=== PATIENT | female | born 1995 | race Caucasian/White ===

== ENCOUNTER 2018-05-09 20:07 | Emergency (ER) | payer OTHER, SELFPAY ==
[2018-05-09 20:08] VITALS: BP 135/97; PULSE 93; RESP 16; TEMP 36.8; O2SAT 98; BMI 23.3
--- NOTE | 2018-05-09 22:05 | ED.VISSUMM ---
- ER Visit Summary Date of Service: 05/09/18 Chief Complaint: [place] tooth pain History of Present Illness: The patient is a 22 F with 5-day history of pain where her wisdom teeth are coming through. Patient states she is trying aspirin and Orajel without improvement. She plans on seeing a dentist to have her teeth pulled. Physical Examination: Vital signs unremarkable. Patient is lying in bed no acute distress. Head neck examination reveals no facial edema or erythema. Intraoral examination reveals mandibular wisdom teeth are emerging bilaterally. There is no significant gum edema. There is no sign of infection. Posterior pharynx exam is normal. Test Results: [] Emergency Department Course and Treatment: Patient be treated with anti-inflammatories, first dose given here. She is given a dental list. Treatment Plan: [] Disposition: Discharge Impression: Odontalgia This note was generated with [email or web address] dictation software. It may contain incorrect words, spelling, and punctuation that were not noted in review of the chart prior to signing ED Disposition - Plan for ED Patient: Disposition: Home or Assisted Living Instructions: Understanding [place] Teeth, ED Tooth Pain Prescriptions: Naproxen [Naprosyn] 500 mg PO BID PRN PRN #20 tablet PRN Reason: Pain Additional Instructions: Dental list provided
[2018-05-09] MEDS: Naproxen 500 MG Tablet PO (22:17)
[2018-05-09 22:20] VITALS: RESP 16
== END 2018-05-09 22:20 | disposition home or self-care (01) ==
PROVIDERS: Emergency Provider Emergency Medicine
DX: K08.89 Other specified disorders of teeth and supporting structures (principal)
CPT/HCPCS: 99283